=== PATIENT | male | born 1945 | race Caucasian/White ===

== ENCOUNTER 2021-09-18 13:12 | Observation (INO) | payer MEDICARE, BC ==
[2021-09-18 13:43] LABS: #Basophils 0.1 10x3/uL (0.0-0.2); #Eosinphils 0.4 10x3/uL (0.0-0.5); #Monocytes 1.2 10x3/uL (0.0-1.1); #Neutrophils 4.2 10x3/uL (1.5-8.4); %Basophils 1.1 % (0.0-2.0); %Eosinophils 3.9 % (0.0-6.0); %Lymphocytes 36.8 % (18.0-47.0); %Monocytes 12.7 % (0.0-10.0); %Neutrophils 45.2 % (40.0-75.0); Hemoglobin 15.6 g/dL (13.5-17.5); Mean Corpuscular HGB CONC 33.1 g/dL (32.0-36.0); Mean Corpuscular Hemoglobin 31.2 pg (27.0-33.0); Mean Corpuscular Volume 94.4 fl (81.2-95.1); Mean Platelet Volume 9.9 fl (7.4-10.4); Platelet Count 256 10x3/uL (150-450); RBC Distribution Width 13.7 % (11.5-14.5); White Blood Cell (WBC) Count 9.3 10x3/uL (3.5-10.5)
[2021-09-18 13:52] LABS: PTT 25.6 sec (22.0-33.0); Prothrombin Time 10.7 sec (9.5-12.1)
[2021-09-18 13:54] LABS: ALT (SGPT) 38 U/L (8-55); AST (SGOT) 20 U/L (5-34); Albumin 4.3 g/dL (3.4-4.8); Alkaline Phosphatase 96 U/L (40-110); Anion Gap 15 mmol/L (10-20); BUN (Urea Nitrogen) 17 mg/dL (8.4-25.7); Bilirubin, Total 0.6 mg/dL (0.2-1.2); Calc. Creatinine Clearance 0 mL/min (70-130); Calcium 9.1 mg/dL (7.8-10.44); Carbon Dioxide 24 mmol/L (23-31); Chloride 106 mmol/L (98-107); Globulin 2.7 g/dL (2.4-3.5); Glucose 119 mg/dL (83-110); Potassium 4.2 mmol/L (3.5-5.1); Sodium 141 mmol/L (136-145)
[2021-09-18 13:55] LABS: Acetaminophen Less than 6.0 mcg/mL (10.0-30.0); Alcohol Less than 10 mg/dL (Less than 10); CK (CPK) 68 U/L (30-200); Salicylate Less than 8.0 mg/dL (15.0-30.0)
[2021-09-18] MEDS ORDERED: Aspirin 325 MG TAB ONE (14:25)
[2021-09-18 16:41] LABS: Troponin I Less than 0.010 ng/mL (< 0.028)
[2021-09-18] MEDS ORDERED: hydrALAZINE 20 MG/ML VIAL SLOW IVP PRN (17:36)
[2021-09-18] MEDS ORDERED: Acetaminophen 325 MG TAB PO PRN (17:40)
[2021-09-18] MEDS ORDERED: Ondansetron ODT 4 MG TAB PO PRN (17:40)
[2021-09-18 17:51] VITALS: BMI 37.5
[2021-09-18] MEDS ORDERED: Dextrose 50% Abboject 50 ML SYRINGE SLOW IVP PRN (18:08)
[2021-09-18] MEDS ORDERED: Dextrose 5% in Water 1,000 ML IV PRN (18:08)
[2021-09-18] MEDS ORDERED: HumaLOG 300 UNITS/3 ML VIAL SC PRN ×2 (18:08)
[2021-09-18 19:49] LABS: Troponin I Less than 0.010 ng/mL (< 0.028)
[2021-09-18] MEDS ORDERED: Atorvastatin Calcium 40 MG TAB PO SCH (21:00)
[2021-09-18] MEDS ORDERED: FLU VACC QS2021-22(65YR UP)/PF 240 MCG/0.7 ML SYRINGE IM ONE (21:30)
[2021-09-19 04:38] LABS: #Basophils 0.1 10x3/uL (0.0-0.2); #Eosinphils 0.3 10x3/uL (0.0-0.5); %Basophils 0.8 % (0.0-2.0); %Eosinophils 4.1 % (0.0-6.0); %Lymphocytes 31.6 % (18.0-47.0); %Monocytes 12.3 % (0.0-10.0); %Neutrophils 50.9 % (40.0-75.0); Hemoglobin 14.2 g/dL (13.5-17.5); Mean Corpuscular HGB CONC 32.9 g/dL (32.0-36.0); Mean Corpuscular Volume 94.3 fl (81.2-95.1); Mean Platelet Volume 10.2 fl (7.4-10.4); Platelet Count 229 10x3/uL (150-450); RBC Distribution Width 13.7 % (11.5-14.5); Red Blood Cell (RBC) Count 4.58 10x6/uL (4.32-5.72); White Blood Cell (WBC) Count 7.9 10x3/uL (3.5-10.5)
[2021-09-19 04:57] LABS: Anion Gap 14 mmol/L (10-20); BUN (Urea Nitrogen) 12 mg/dL (8.4-25.7); Calc. Creatinine Clearance 119 mL/min (70-130); Calcium 8.9 mg/dL (7.8-10.44); Carbon Dioxide 24 mmol/L (23-31); Cardiac Risk 4.3 (Less than 4.5); Chloride 107 mmol/L (98-107); Cholesterol 112 mg/dl (< 200 Desired); Glucose 113 mg/dL (83-110); HDL Cholesterol 26 mg/dL (>60 Neg Risk); LDL Cholesterol, Calculated 48 mg/dL; Sodium 141 mmol/L (136-145); Triglycerides 189 mg/dL (Less than 150)
[2021-09-19 05:14] LABS: Thyroid Stimulating Hormone 2.145 uIU/mL (0.35-4.94)
[2021-09-19] MEDS ORDERED: Mometasone/Formoterol 200/5 60 PUFF INH SCH (08:36)
[2021-09-19] MEDS ORDERED: Aspirin 81 mg Enteric Coated Tablet PO SCH (09:00)
[2021-09-19] MEDS ORDERED: Allopurinol 100 MG TAB PO SCH (09:00)
[2021-09-19] MEDS ORDERED: Apixaban 5 MG TAB PO SCH (09:00)
[2021-09-19] MEDS ORDERED: Aspirin Chewable 81 MG TAB PO SCH (09:00)
[2021-09-19] MEDS ORDERED: Metoprolol Tartrate 25 MG TAB PO SCH (09:00)
[2021-09-19 12:13] VITALS: BP 165/95; TEMP 97.9
[2021-09-19 14:45] LABS: SARS-CoV-2 PCR by NAA Not Detected (NotDetected)
[2021-09-19] MEDS: Albuterol Sulfate 2.5 mg/3 ml Neb NEB SCH ×2 (16:41→16:42)
[2021-09-19] MEDS ORDERED: Albuterol Sulfate 2.5 mg/3 ml Neb ONE (18:49)
[2021-09-19] MEDS ORDERED: Tamsulosin HCl 0.4 MG CAP PO SCH (21:00)
[2021-09-19] MEDS ORDERED: Atorvastatin Calcium 10 MG TAB PO SCH (21:00)
[2021-09-19] MEDS ORDERED: Montelukast Sodium 10 mg Tablet PO SCH (21:00)
== END 2021-09-19 17:50 | disposition home or self-care (01) ==
LOC: CSHERS 13:12 → CSHTELE 17:20
PROVIDERS: ADMIT Internal Medicine; ATTEND Nurse Practitioner Family
DX: G45.9 Transient cerebral ischemic attack, unspecified (principal); E11.9 Type 2 diabetes mellitus without complications; I10 Essential (primary) hypertension; I48.91 Unspecified atrial fibrillation; N40.0 Benign prostatic hyperplasia without lower urinary tract symptoms; K21.9 Gastro-esophageal reflux disease without esophagitis; M10.9 Gout, unspecified; Z79.01 Long term (current) use of anticoagulants; Z79.899 Other long term (current) drug therapy; Z90.5 Acquired absence of kidney; Z85.528 Personal history of other malignant neoplasm of kidney; Z79.84 Long term (current) use of oral hypoglycemic drugs; Z20.822 Contact with and (suspected) exposure to COVID-19
CPT/HCPCS: 70450; 70551; 71045; 80048; 80053; 80061; 80307; 82550; 82607; 82746; 82962 ×2; 83735; 84443; 84484 ×2; 85025 ×2; 85610; 85730; 93005; 93306; 93880; 97139; 99285; G0378 ×2; U0003; U0005; 36415; 36416

== ENCOUNTER 2021-09-22 13:43 | Emergency (ER) | payer MEDICARE, BC ==
[2021-09-22] MEDS ORDERED: hydrOXYzine 25 MG TAB ONE (14:46)
== END 2021-09-22 15:03 | disposition home or self-care (01) ==
LOC: CSHERS 13:43
DX: I10 Essential (primary) hypertension (principal); R29.700 NIHSS score 0; I48.91 Unspecified atrial fibrillation; E11.9 Type 2 diabetes mellitus without complications; J45.909 Unspecified asthma, uncomplicated; Z86.73 Personal history of transient ischemic attack (TIA), and cerebral infarction without residual deficits; Z90.5 Acquired absence of kidney; Z79.01 Long term (current) use of anticoagulants; Z79.82 Long term (current) use of aspirin; Z79.899 Other long term (current) drug therapy
CPT/HCPCS: 99283

== ENCOUNTER 2022-05-09 13:18 | Outpatient (CLI) | payer MEDICARE, BC | END 2022-05-09 13:19 | disposition home or self-care (01) | LOC: CSHCT 13:18 | PROVIDERS: ATTEND Internal Medicine Cardiovascular Disease | DX: I48.0 Paroxysmal atrial fibrillation (principal); G45.9 Transient cerebral ischemic attack, unspecified; Z95.818 Presence of other cardiac implants and grafts | CPT/HCPCS: 71275; 82565 ==

== ENCOUNTER 2023-08-06 16:39 | Emergency (ER) | payer MEDICARE, BC ==
[2023-08-06 18:48] LABS: #Basophils 0.1 10x3/uL (0.0-0.2); #Eosinphils 0.1 10x3/uL (0.0-0.5); #Monocytes 0.8 10x3/uL (0.0-1.1); #Neutrophils 7.5 10x3/uL (1.5-8.4); %Basophils 0.6 % (0.0-2.0); %Eosinophils 1.2 % (0.0-6.0); %Lymphocytes 21.4 % (18.0-47.0); %Monocytes 7.7 % (0.0-10.0); %Neutrophils 68.8 % (40.0-75.0); Hematocrit 47.9 % (38.8-50.0); Hemoglobin 16.1 g/dL (13.5-17.5); Mean Corpuscular HGB CONC 33.6 g/dL (32.0-36.0); Mean Corpuscular Hemoglobin 31.1 pg (27.0-33.0); Mean Corpuscular Volume 92.5 fl (81.2-95.1); Mean Platelet Volume 9.5 fl (7.4-10.4); Platelet Count 261 10x3/uL (150-450); RBC Distribution Width 13.6 % (11.5-14.5); Red Blood Cell (RBC) Count 5.18 10x6/uL (4.32-5.72)
[2023-08-06 19:02] LABS: ALT (SGPT) 30 U/L (8-55); AST (SGOT) 19 U/L (5-34); Albumin 4.5 g/dL (3.4-4.8); Alkaline Phosphatase 94 U/L (40-110); Anion Gap 15 mmol/L (10-20); BUN (Urea Nitrogen) 16 mg/dL (8.4-25.7); Calc. Creatinine Clearance 0 mL/min (70-130); Calcium 9.9 mg/dL (7.8-10.44); Carbon Dioxide 27 mmol/L (23-31); Chloride 102 mmol/L (98-107); Estimated GFR 60; Glucose 107 mg/dL (83-110); Potassium 4.5 mmol/L (3.5-5.1); Protein, Total 7.5 g/dL (5.8-8.1); Sodium 139 mmol/L (136-145)
[2023-08-06 19:08] LABS: Troponin I Less than 0.010 ng/mL (< 0.028)
[2023-08-06 20:28] LABS: Bilirubin Neg (Negative); Blood, Urine Negative (Negative); Clarity Clear (Clear); Glucose, Urine (Dipstick) Normal (Negative); Ketone, Urine 50 mg/dL (Negative); Leukocyte Negative (Negative); Nitrite Negative (Negative); Protein, Urine (Dipstick) Negative (Neg-Trace); Urobilinogen Normal mg/dL (Less than 2); pH, Urine 6.5 (5.0-9.0)
[2023-08-06 20:34] LABS: Bacteria/HPF None Seen HPF (None Seen); CAUTI Indications for Culture Dysuria,urgency,freq; RBC/HPF None Seen HPF (0-3); Squamous Epithelial None Seen HPF (0-3); WBC/HPF None Seen HPF (0-3)
[2023-08-06 20:35] LABS: Urine Culture Reflex No No
== END 2023-08-06 23:23 | disposition home or self-care (01) ==
LOC: CSHERS 16:39
DX: M79.604 Pain in right leg (principal); I48.91 Unspecified atrial fibrillation; J45.909 Unspecified asthma, uncomplicated; I10 Essential (primary) hypertension; E11.9 Type 2 diabetes mellitus without complications; E66.01 Morbid (severe) obesity due to excess calories; Z86.73 Personal history of transient ischemic attack (TIA), and cerebral infarction without residual deficits
CPT/HCPCS: 36415; 71045; 80053; 81001; 84484; 85025; 93005

== ENCOUNTER 2025-08-05 16:04 | Emergency (ER) | payer MEDICARE, BC ==
[2025-08-05 17:33] LABS: #Basophils 0.04 10x3/uL (0.0-0.2); #Eosinophils 0.06 10x3/uL (0.0-0.5); #Monocytes 1.19 10x3/uL (0.0-1.1); #Neutrophils 12.53 10x3/uL (1.5-8.4); %Basophils 0.3 % (0.0-2.0); %Eosinophils 0.4 % (0.0-6.0); %Lymphocytes 7.7 % (18.0-47.0); %Monocytes 7.9 % (0.0-10.0); %Neutrophils 83.2 % (40.0-75.0); Hematocrit 42.1 % (38.8-50.0); Hemoglobin 14.1 g/dL (13.5-17.5); Mean Corpuscular Hemoglobin 31.1 pg (27.0-33.0); Mean Corpuscular Volume 92.9 fL (81.2-95.1); Platelet Count 210 10x3/uL (150-450); Red Blood Cell (RBC) Count 4.53 10x6/uL (4.32-5.72); White Blood Cell (WBC) Count 15.06 10x3/uL (3.5-10.5)
[2025-08-05 17:43] LABS: ALT (SGPT) 19 U/L (Less than 45); AST (SGOT) 15 U/L (11-34); Albumin 3.9 g/dL (3.1-4.5); Alkaline Phosphatase 80 U/L (40-110); Anion Gap 12 mmol/L (10-20); BUN (Urea Nitrogen) 16 mg/dL (8.4-25.7); Bilirubin, Total 1.2 mg/dL (0.3-1.2); Calc. Creatinine Clearance 0 mL/min (70-130); Calcium 8.6 mg/dL (7.8-10.44); Carbon Dioxide 25 mmol/L (23-31); Chloride 103 mmol/L (98-107); Globulin 2.7 g/dL (2.4-3.5); Glucose 105 mg/dL (83-110); Lipase 15 U/L (8-78); Potassium 4.0 mmol/L (3.5-5.1); Sodium 136 mmol/L (136-145)
[2025-08-05] MEDS ORDERED: cefTRIAXone (ROCEPHIN) 2 GM VIAL ONE (17:44)
[2025-08-05 17:48] LABS: Troponin I 0.018 ng/mL (< 0.028)
[2025-08-05 18:58] LABS: Glucose, Urine (Dipstick) Normal (Negative); Leukocyte 100 (Negative); Protein, Urine (Dipstick) 30 mg/dl (Neg-Trace); Specific Gravity, Urine 1.010 (1.005-1.030)
[2025-08-05 19:20] LABS: CAUTI Indications for Culture Alt mental st,lethar; RBC/HPF 0-3 HPF (0-3)
[2025-08-05 19:21] LABS: Bacteria/HPF Rare-Few HPF (None Seen)
[2025-08-05 19:22] LABS: Urine Culture Reflex Yes Yes
== END 2025-08-05 19:23 | disposition home or self-care (01) ==
LOC: CSHERS 16:04
DX: N39.0 Urinary tract infection, site not specified (principal); K64.4 Residual hemorrhoidal skin tags; I10 Essential (primary) hypertension; E11.9 Type 2 diabetes mellitus without complications; I48.91 Unspecified atrial fibrillation; Z79.02 Long term (current) use of antithrombotics/antiplatelets
CPT/HCPCS: 71045; 74176; 80053; 81001; 83605; 83690; 84484; 85025; 87040; 87081; 87086; 87428; 87430; 93005; J0696; 36415; 96365